=== PATIENT | female | born 2000 | race Two or more races ===

== ENCOUNTER 2024-11-22 20:42 | Emergency (ER) | payer MEDICAID, SELFPAY ==
[2024-11-22 20:43] VITALS: BP 125/78; PULSE 117; RESP 18; TEMP 36.9; O2SAT 98; BMI 26.9
[2024-11-22] MEDS: METOCLOPRAMIDE INJ 5 MG/ML VIAL 2 ML 10 MG IM (22:34)
[2024-11-22] MEDS: ONDANSETRON ODT 4 MG TABRAP PO (23:34)
--- NOTE | 2024-11-23 03:11 | PD.EDNV ---
Nausea/Vomit./Diarrhea-RME/HPI General Chief complaint: Nausea/Vomiting/Diarrhea Stated complaint: VOMITING SINCE THIS MORNING, NAVARRO SINCE YESTERDAY Time Seen by Provider: 11/22/24 21:35 Arrival date/time: 11/22/24 20:42 24F with history of migraines presents to ED with 2 days of NAVARRO and 1 day of N/V. Patient is on Wegovy for weight loss and recently started it back again after running out. Limitations: no limitations Related Data Home Medications ?Medication ?Instructions ?Recorded ?Confirmed ergocalciferol (vitamin D2) 1,250 1,250 mcg PO QWEEK 03/16/24 03/17/24 mcg (50,000 unit) capsule rimegepant 75 mg disintegrating 75 mg PO USEASDIRECTD PRN Migraine 03/16/24 03/17/24 tablet (Nurtec ODT) Headache semaglutide (weight loss) 1 mg/0.5 1 mg subcut QWEEK 03/16/24 03/16/24 mL subcutaneous pen injector (Wegovy) Previous Rx's ?Medication ?Instructions ?Recorded ondansetron 4 mg disintegrating 4 mg PO Q8H PRN nausea and 11/23/24 tablet vomiting #14 tabs Allergies Allergy/AdvReac Type Severity Reaction Status Date / Time No Known Allergies Allergy Verified 11/22/24 20:43 Review of Systems Review of Systems Systems Reviewed: All systems reviewed, normal except as documented Constitutional Constitutional: Reports system reviewed and no additional complaints, except as documented, Reports as per HPI, Denies fever(s) and Reports headache(s) ENT Ears, Nose, Mouth, and Throat: Denies disequilibrium and Reports headache(s) Cardiovascular Cardiovascular: Reports system reviewed and no additional complaints, except as documented, Denies chest pain and Denies dyspnea Respiratory Respiratory: Reports system reviewed and no additional complaints, except as documented, Denies cough and Denies dyspnea Gastrointestinal Gastrointestinal: Reports system reviewed and no additional complaints, except as documented, Reports as per HPI, Denies abdominal pain, Reports nausea and Reports vomiting Neurologic Neurologic: Reports system reviewed and no additional complaints, except as documented, Denies confusion, Denies disequilibrium and Reports headache(s) Psychiatric Psychiatric: Denies confusion Past Medical History Past Medical History NEUROLOGIC: Positive Neurological Disorders and Migraine; Negative Seizures CARDIAC: Negative Cardiac Disorders, Congestive Heart Failure or Hypertension RESPIRATORY: Positive Asthma (resolved); Negative Chronic Obstructive Pulmonary Disease (COPD) GASTROINTESTINAL: Positive Gastrointestinal Disorders (liver enzymes elevated, recommended to loose weight) and Obesity GENITOURINARY: Negative Genitourinary Disorders or Renal Disease REPRODUCTIVE: Negative Previous Pregnancies MUSCULOSKELETAL: Negative Musculoskeletal Disorders ENDOCRINE: Negative Endocrine Disorders, Diabetes Mellitus Type 1 or Diabetes Mellitus Type 2 HEMATOLOGIC: Negative Blood Disorders OTHER HISTORY: Negative Hospitalization, Autoimmune Disease, Shingles, Blood Transfusions, Blood Transfusion Reaction, Anesthesia Reactions or Cancer Family History FAMILY HISTORY: Positive Family Surgery; Negative Family Psychiatric Problems, Family Respiratory Disorders, Family Cardiac Disorders, Family Gastrointestinal Problems, Family Cancer or Family Anesthesia Reaction Social History SMOKING STATUS: Never smoker ED Exam General Limitations: Present no limitations General appearance: Present alert and in no apparent distress Head Head exam: Present atraumatic Eye Eye exam: Present normal appearance, PERRL and EOMI ENT ENT exam: Present normal exam, normal oropharynx and mucous membranes moist Neck Neck exam: Present normal inspection, full ROM and trachea midline Chest Chest inspection: Present normal inspection and symmetric chest wall rise Respiratory Respiratory exam: Present normal lung sounds bilaterally Cardiovascular Cardiovascular exam: Present regular rate, normal rhythm and normal heart sounds Abdominal Exam Abdominal exam: Present soft and normal bowel sounds Extremities Exam Extremities exam: Present normal inspection and full ROM Back Exam Back exam: Present normal inspection and full ROM Neurological Exam Neurological exam: Present alert, oriented X3 and CN II-XII intact Psychiatric Psychiatric exam: Present normal affect and normal mood Skin Skin exam: Present warm, dry, intact and normal color Course Quality Measures none Orders Category Date Time Status Metoclopramide Inj [Reglan Inj] Med 11/22/24 21:36 Discontinued 10 mg IM X1 ONE Ondansetron Odt [Zofran Odt] Med 11/22/24 23:18 Discontinued 4 mg PO X1 ONE Vital Signs Vital signs: Vital Signs Temperature 98.4 F 11/22/24 20:43 Pulse Rate 117 H 11/22/24 20:43 Respiratory Rate 18 11/22/24 20:43 Blood Pressure 125/78 11/22/24 20:43 Pulse Oximetry (%) 98 11/22/24 20:43 Oxygen Delivery Method Room Air 11/22/24 20:43 O2 at 98% on RA and WNLs Nausea/Vomiting/Diarrhea MDM Narrative MDM Narrative:: 24F with history of migraines presents to ED with 2 days of NAVARRO and 1 day of N/V. Patient is on Wegovy for weight loss and recently started it back again after running out. Physical exam reveals normal pupil response and EOM. Gait normal. Speech normal. Patient is afebrile, calm, and alert. PO challenge passed. NAVARRO resolved w/o pain meds. Likely side effect from Wegovy. Patient data External records reviewed:: [facility] previous records Clinical information provided by:: patient Social determinants that could affect healthcare access:: none Patient has the following chronic illnesses:: migraines How is presenting disease/condition affected by chronic disease/condition?: exacerbated by Evaluation data The following diagnostics were reviewed and interpreted by me:: other (specify) (none) Lab and/or radiology exams considered but not ordered:: not ordered Interpretation Summary: n/a Medications / Prescriptions Medications / Prescriptions considered but not ordered:: ordered Medication administrations:: Medication Administration History Discontinued Medications Metoclopramide HCl (Metoclopramide Inj 5 Mg/Ml Vial 2 Ml) 10 mg IM X1 ONE; Protocol Stop: 11/22/24 21:37 Last Admin: 11/22/24 22:34 Dose: 10 mg Documented By: LIZBETH Ondansetron HCl (Ondansetron Odt 4 Mg Tabrap) 4 mg PO X1 ONE; Protocol Stop: 11/22/24 23:19 Last Admin: 11/22/24 23:34 Dose: 4 mg Documented By: LIZBETH above Consultations Consultation(s) initiated? (list below): No Diagnosis Nausea Differential Diagnosis: traveler's diarrhea, food poisoning, gastroenteritis, clostridium difficile infection, drug-induced nausea and vomiting and dehydration Most likely diagnosis given after review of the tests above:: N/V Admission Indicated Admission indicated?: not indicated Admission Request Was there a request for admission?: No Disposition Plan Disposition Plan: Discharge Discharge Attestation Discharge Attestation: The patient and all family members were given an opportunity to ask questions and understood the discharge instructions. Discharge instructions specifically effects, indications for sooner follow up or return to the emergency department, and the expected course of current diagnosis. Patient condition: Stable Discharge Plan Plan Patient Disposition: HOME (Self Care) Discharge Disposition comment: Stable Prescriptions/Referrals Prescriptions/Med Rec: New ondansetron 4 mg tablet,disintegrating 4 mg PO Q8H PRN (Reason: nausea and vomiting) Qty: 14 0RF No Action ergocalciferol (vitamin D2) 1,250 mcg (50,000 unit) capsule 1,250 mcg PO QWEEK Patient Comments: TAKE 1 CAPSULE BY MOUTH WEEKLY FOR 90 DAYS Nurtec ODT 75 mg tablet,disintegrating 75 mg PO USEASDIRECTD PRN (Reason: Migraine Headache) Patient Comments: PLEASE SEE ATTACHED FOR DETAILED DIRECTIONS Wegovy 1 mg/0.5 mL pen injector 1 mg SUBCUT QWEEK Referrals: Rafa Romero MD [Primary Care Provider] - In 1 week Problem List Clinical Impression: Nausea and vomiting Patient/Caregiver Discharge Instructions Education Materials: ED Vomiting (Adult) Additional Instructions: Please follow-up with PCP within 24-48 hours and return immediately if symptoms worsen. Keep hydrated. Advance diet as tolerated. Print Language: Prydeinig Stand Alone Forms: Work/School Release, Patient Portal Info Letter PA/SOFTWARE RELEASE MANAGER Supervising Physician PA/SOFTWARE RELEASE MANAGER Supervising Physician: Dr. Julien
== END 2024-11-23 00:49 | disposition home or self-care (01) ==
PROVIDERS: Emergency Provider Emergency Medicine; PCP Family Medicine
DX: R11.2 Nausea with vomiting, unspecified (principal)
CPT/HCPCS: 96372; 99283; J2765; Q0162

== ENCOUNTER 2025-01-27 05:59 | Emergency (ER) | payer BC, SELFPAY ==
[2025-01-27 06:00] VITALS: BMI 28.7
[2025-01-27 06:02] VITALS: BP 123/82; PULSE 81; RESP 18; TEMP 36.7; O2SAT 99
--- NOTE | 2025-01-27 06:37 | XR_ITS ---
Examination: Abdomen sonogram, Limited Date and time of exam: January 27, 2025, 0848 hrs. Indications: Onset mid abdominal pain today Technique: Real-time cheek scale transabdominal sonographic images of the upper abdomen obtained. Findings: Multiple gallstones. Normal gallbladder wall. Normal common bile duct 0.2 cm. Pancreatic head 2.4 cm. Liver 19.4 cm fatty infiltration no focal liver lesions. Normal hepatopedal portal venous flow. Patent IVC Impression: Cholelithiasis, negative for cholecystitis
--- NOTE | 2025-01-27 06:37 | PD.EDRME ---
Rapid Medical Screening Exam RME Arrival date/time: 01/27/25 05:59 Chief Complaint: Back Pain/Injury Time Seen by Provider: 01/27/25 06:30 Vital signs: Vital Signs Temperature 98.0 F 01/27/25 06:02 Pulse Rate 81 01/27/25 06:02 Respiratory Rate 18 01/27/25 06:02 Blood Pressure 123/82 01/27/25 06:02 Pulse Oximetry (%) 99 01/27/25 06:02 Oxygen Delivery Method Room Air 01/27/25 06:02 Vital signs reviewed by provider: Yes RME Narrative: Patient is a 24 yo female that is in the ED with epigastric pain radiating to the back. Denies pmh, no meds, no allergies to medications, no drugs alcohol or smoking. Denies fevers chills nausea vomiting chest pain palpitations dysuria hematuria melena bloody stools. Has a history of [place]. No recent travel. Does not take any medications, no allergies to medications. Did not take any medications prior to arrival
[2025-01-27 07:26] LABS: Basophils # (Auto) 0.0 Thou/mm3 (0.0-0.2); Basophils % (Auto) 0 % (0-2.5); Eosinophils # (Auto) 0.1 Thou/mm3 (0.0-0.5); Eosinophils % (Auto) 1 % (0-10); Hematocrit 40.6 % (36.0-46.0); Hemoglobin 14.2 g/dL (12.0-16.0); Immature Granulocytes Auto 0.01 Thou/mm3 (0.00-0.00); Lymphocytes # (Auto) 1.9 Thou/mm3 (1.0-4.8); Lymphocytes % (Auto) 21 % (10-50); Mean Corpuscular HGB Conc 35.0 g/dl (31.0-37.0); Mean Corpuscular Hemoglobin 32.1 pg (25.0-35.0); Mean Corpuscular Volume 92 fL (80-100); Monocytes # (Auto) 0.5 Thou/mm3 (0.0-0.8); Monocytes % (Auto) 5 % (0-12); Neutrophils # (Auto) 6.5 Thou/mm3 (1.8-7.7); Neutrophils % (Auto) 72 % (37-80); Nucleated Red Blood Cell # 0.00 Thou/mm3 (0.00-0.00); Nucleated Red Blood Cell % 0 /100 WBC (0); Platelet Count 285 Thou/mm3 (140-440); RDW Standard Deviation 41.4 fL (36.4-46.3); Red Blood Count 4.43 Miln/mm3 (4.00-5.20); White Blood Count 9.0 Thou/mm3 (3.6-11.0)
[2025-01-27 07:40] LABS: Alanine Aminotransferase 51 U/L (10-49); Albumin, Serum 4.3 gm/dL (3.5-5.0); Albumin/Globulin Ratio 1.6 (1.2-2.2); Alkaline Phosphatase 56 U/L (46-116); Anion Gap 11 (7-16); Aspartate Amino Transferase 66 U/L (0-34); BUN/Creatinine Ratio 16 Ratio (12-20); Bilirubin,Total 0.6 mg/dL (0.3-1.2); Blood Urea Nitrogen 11 mg/dL (9-23); Calcium 9.4 mg/dL (8.3-10.6); Calcium (Corrected) 9.4 mg/dL (8.5-10.1); Carbon Dioxide 25.4 mMol/L (20.0-31.0); Chloride 104 mMol/L (98-107); Creatinine (Component) 0.7 mg/dL (0.6-1.3); Estimated Creatinine Clearance 120.0 mL/min (>60); Globulin 2.7 gm/dL (2.3-3.5); Glucose 98 mg/dL (74-106); Lipase 40 U/L (12-53); Osmolality,Calculated 278 (275-295); Potassium 3.9 mMol/L (3.4-5.1); Sodium 140 mMol/L (136-145); Total Protein 7.0 gm/dL (5.7-8.2); eGFR > 60 See Note
[2025-01-27 08:21] LABS: Collection Type, Urine Clean Catch
[2025-01-27 08:33] LABS: HCG,Qualitative Serum Negative
[2025-01-27 08:36] LABS: Bilirubin,Urine Negative (Negative); Blood,Urine Negative (Negative); Clarity,Urine Clear (Clear/Hazy); Color,Urine Yellow (Lt Yel-Yel); Culture Indicated,Urine Not Indicated; Glucose, Urine Negative (Negative); Ketones,Urine Negative (Negative); Leukocyte Esterase,Urine Negative (Negative); Nitrite,Urine Negative (Negative); PH,Urine 6.0 (5.0-7.0); Protein,Urine Trace (Neg - Trace); RBC,Urine 3 /hpf (0-3); Specific Gravity,Urine 1.036 (1.001-1.035); Squamous Epithelial Cell,Urine 8 /hpf (0-5); Urobilinogen,Urine Negative mg/dL (0.0-1.0); WBC,Urine 1 /hpf (0-5)
--- NOTE | 2025-01-27 11:40 | EDNOTE_ITS ---
ED Back Injury Pain RME/HPI General Chief Complaint: Back Pain/Injury Stated Complaint: MID BACK PAIN RADIATES TO FRONT Time Seen by Provider: 01/27/25 06:30 Arrival date/time: 01/27/25 05:59 Limitations: no limitations RME / HPI RME / HPI Narrative: Patient states she woke up this morning at 4 AM with midthoracic back pain that radiates to her abdomen. She states she works as a [employer] but does not recall any injuries. She denies any nausea, vomiting, or diarrhea. Has had no urinary complaints. She has no dysuria urinary frequency. She denies any fevers or chills. She denies any chronic medical illness. She denies any past surgeries. She denies possibility of today. She has no other acute complaints. Related Data Home Medications ?Medication ?Instructions ?Recorded ?Confirmed ergocalciferol (vitamin D2) 1,250 1,250 mcg PO QWEEK 1 03/17/24 mcg (50,000 unit) capsule rimegepant 75 mg disintegrating 75 mg PO USEASDIRECTD PRN Migraine 03/16/24 03/17/24 tablet (Nurtec ODT) Headache semaglutide (weight loss) 1 mg/0.5 1 mg subcut QWEEK 1 03/16/24 mL subcutaneous pen injector (Lcgovy) Previous Rx's ?Medication ?Instructions ?Recorded ondansetron 4 mg disintegrating 4 mg PO Q8H PRN nausea and 11/23/24 tablet vomiting #14 tabs Allergies Allergy/AdvReac Type Severity Reaction Status Date / Time No Known Allergies Allergy Verified 11/22/24 20:43 Review of Systems Review of Systems Systems Reviewed: All systems reviewed, normal except as documented ED Exam General Limitations: Present no limitations General appearance: Present alert and in no apparent distress Head Head exam: Present atraumatic Eye Eye exam: Present normal appearance, PERRL and EOMI ENT ENT exam: Present normal exam, normal oropharynx and mucous membranes moist Neck Neck exam: Present normal inspection, full ROM and trachea midline Chest Chest inspection: Present normal inspection and symmetric chest wall rise Respiratory Respiratory exam: Present normal lung sounds bilaterally Cardiovascular Cardiovascular exam: Present regular rate, normal rhythm and normal heart sounds Abdominal Exam Abdominal exam: Present soft; Absent tenderness, guarding, rebound or rigidity Extremities Exam Extremities exam: Present normal inspection and full ROM Back Exam Back exam: Present normal inspection and full ROM Neurological Exam Neurological exam: Present alert and oriented X3 Psychiatric Psychiatric exam: Present normal affect and normal mood Skin Skin exam: Present warm, dry, intact and normal color Course Quality Measures none Orders Category Date Time Status US abdomen limited Stat Exams 01/27/25 06:37 Completed CBC Stat Lab 01/27/25 06:51 Completed CMP [Comprehensive Metabolic Panel] Stat Lab 01/27/25 06:51 Completed HCG,Qualitative Serum Stat Lab 01/27/25 06:51 Completed Lipase Stat Lab 01/27/25 06:51 Completed UA, C/S IF [Urinalysis, C/S if Indicated] Stat Lab 01/27/25 08:04 Completed Ciprofloxacin/Dexam Otic Fouzia [Ciprodex Otic Fouzia] Med 01/27/25 06:56 Discontinued 3 drop LEFT EAR X1 ONE Lidocaine 2% Viscous [Xylocaine 2% Viscous] Med 01/27/25 06:37 Discontinued 15 ml PO X1 ONE mg Hyd/Al Hyd/Emilia Susp [Maalox Susp] Med 01/27/25 06:37 Discontinued 30 ml PO X1 ONE Vital Signs Vital signs: Vital Signs Temperature 98.0 F 01/27/25 06:02 Pulse Rate 81 01/27/25 06:02 Respiratory Rate 18 01/27/25 06:02 Blood Pressure 123/82 01/27/25 06:02 Pulse Oximetry (%) 99 01/27/25 06:02 Oxygen Delivery Method Room Air 01/27/25 06:02 Back Pain / Injury MDM Narrative MDM Narrative:: Patient states she woke up this morning at 4 AM with midthoracic back pain that radiates to her abdomen. She states she works as a [employer] but does not recall any injuries. She denies any nausea, vomiting, or diarrhea. Has had no urinary complaints. She has no dysuria urinary frequency. She denies any fevers or chills. She denies any chronic medical illness. She denies any past surgeries. She denies possibility of today. She has no other acute complaints. On exam, patient is nontoxic-appearing in no visible signs distress. She has no CVA tenderness. Abdomen is soft and supple with no mass or guarding. I am unable to elicit any pain during the exam. Her workup here included CBC, CMP, lipase, abdominal ultrasound, and urinalysis. The workup is benign. I do believe patient be discharged for outpatient follow-up. We discussed her incidental finding of cholelithiasis without cholecystitis. We discussed therapy options for that. She will follow-up with her primary doctor and she may also contact surgery. She was counseled on return precautions. She agrees to return as needed for any worsening or emergent changes. Otherwise use Tylenol and ibuprofen as needed. Patient data External records reviewed:: None Clinical information provided by:: patient Social determinants that could affect healthcare access:: none Patient has the following chronic illnesses:: n/a How is presenting disease/condition affected by chronic disease/condition?: no chronic disease Evaluation data The following diagnostics were reviewed and interpreted by me:: lab results and radiology exam(s) Lab and/or radiology exams considered but not ordered:: n/a Interpretation Summary: Cholelithiasis without cholecystitis Medications / Prescriptions Medications or Prescriptions considered but not ordered:: n/a Medication administrations:: Medication Administration History Discontinued Medications Al Hydrox/Mg Hydrox/Simethicone (Mg Hyd/Al Hyd/Emilia (Maalox Reg) Susp 30 Ml Udc) 30 ml PO X1 ONE Stop: 01/27/25 06:38 Last Admin: 01/27/25 09:44 Dose: Not Given Documented By: DO Non-Admin Reason: Patient Refused Ciprofloxacin/Dexamethasone (Ciprofloxacin/Dexam Otic Fouzia 7.5 Ml Btl) 3 drop LEFT EAR X1 ONE Stop: 01/27/25 06:57 Last Admin: 01/27/25 09:44 Dose: Not Given Documented By: DO Non-Admin Reason: Cancelled by Provider Lidocaine HCl (Lidocaine Viscous 2% 15 Ml Udc) 15 ml PO X1 ONE Stop: 01/27/25 06:38 Last Admin: 01/27/25 09:43 Dose: Not Given Documented By: DO Non-Admin Reason: Patient Refused See above Consultations Consultation(s) initiated? (list below): No Diagnosis Differential diagnosis back pain/injury: strain of lumbar region and pyelonephritis Most likely diagnosis given after review of the tests above:: Back pain, abdominal pain Admission Indicated Admission indicated?: not indicated Admission Request Was there a request for admission?: No Disposition Plan Disposition Plan: Discharge Discharge Attestation Discharge Attestation: The patient and all family members were given an opportunity to ask questions and understood the discharge instructions. Discharge instructions specifically effects, indications for sooner follow up or return to the emergency department, and the expected course of current diagnosis. Patient condition: Stable Discharge Plan Plan Patient Disposition: HOME (Self Care) Patient condition on transfer: Stable Prescriptions/Referrals Prescriptions/Med Rec: No Action ergocalciferol (vitamin D2) 1,250 mcg (50,000 unit) capsule 1,250 mcg PO QWEEK Patient Comments: TAKE 1 CAPSULE BY MOUTH WEEKLY FOR 90 DAYS Nurtec ODT 75 mg tablet,disintegrating 75 mg PO USEASDIRECTD PRN (Reason: Migraine Headache) Patient Comments: PLEASE SEE ATTACHED FOR DETAILED DIRECTIONS Wegovy 1 mg/0.5 mL pen injector 1 mg SUBCUT QWEEK ondansetron 4 mg tablet,disintegrating 4 mg PO Q8H PRN (Reason: nausea and vomiting) Qty: 14 0RF Problem List Clinical Impression: Back pain, Cholelithiasis Patient/Caregiver Discharge Instructions Education Materials: What Are Gallstones, Treating Gallstones, ED Back Care Tips Additional Instructions: .-Fatty and greasy foods may aggravate your gallbladder. - You may try Tylenol and ibuprofen for comfort. - You can also contact general surgery for consultation. - Please follow-up with your doctor within the next 1 to 2 weeks for recheck. - Return anytime for any worsening emergent changes. Print Language: Upper Sorbian Stand Alone Forms: [employer]enu Award Info., Patient Portal Info Letter
== END 2025-01-27 11:55 | disposition home or self-care (01) ==
PROVIDERS: Emergency Provider Emergency Medicine; PCP Family Medicine
DX: K80.20 Calculus of gallbladder without cholecystitis without obstruction (principal); M54.9 Dorsalgia, unspecified
CPT/HCPCS: 36415; 76705; 80053; 81001; 83690; 84703; 85025; 99283